=== PATIENT | male | born 1985 | race Caucasian/White ===

== ENCOUNTER → 2021-07-28 | Outpatient (CLI) | payer OTHER | LOC: EXRD 09:00 | DX: R14.0 Abdominal distension (gaseous) (principal); R18.8 Other ascites; R16.1 Splenomegaly, not elsewhere classified | CPT/HCPCS: 76700 ==

== ENCOUNTER → 2021-08-26 | Day surgery (SDC) | payer OTHER ==
[~2021-08-26] MED LIST: OXYCODONE HCL5 MG PO
== END | disposition home or self-care (01) ==
LOC: OR 06:20
DX: K42.9 Umbilical hernia without obstruction or gangrene (principal); I86.8 Varicose veins of other specified sites; K74.60 Unspecified cirrhosis of liver; I10 Essential (primary) hypertension; D64.9 Anemia, unspecified; R16.1 Splenomegaly, not elsewhere classified; Z88.5 Allergy status to narcotic agent; Z87.891 Personal history of nicotine dependence; Z20.822 Contact with and (suspected) exposure to COVID-19
CPT/HCPCS: C1781; J0690; J1100; J1170; J2001; J2250; J2405; J2704; J3010; J7030; J7120

== ENCOUNTER 2021-09-01 22:26 | Emergency (ER) | payer OTHER ==
[2021-09-01 23:35] LABS: HEMOGLOBIN 10.4 gm/dl (14.0-17.5); RED BLOOD COUNT 3.1 M/UL (4.20-5.50)
[2021-09-02 00:07] LABS: BUN/CREATININE RATIO 8 (0-10)
== END 2021-09-02 03:18 | disposition home or self-care (01) ==
LOC: ER1 22:26
PROVIDERS: Student in an Organized Health Care Education/Training Program
DX: R07.9 Chest pain, unspecified (principal); K76.9 Liver disease, unspecified
CPT/HCPCS: 71045; 80053; 80307; 82550; 82553; 83690; 83874; 84484; 85025; 85379; 85610; 93005; 99285; G0480; Q9967

== ENCOUNTER → 2021-09-10 | Day surgery (SDC) | payer OTHER | END | disposition home or self-care (01) | LOC: OR 07:03 | PROVIDERS: Internal Medicine Gastroenterology | PROC: 0DJ08ZZ Inspection of Upper Intestinal Tract, Via Natural or Artificial Opening Endoscopic (ICD-10-PCS; principal; 2021-09-10 11:40) | DX: K70.31 Alcoholic cirrhosis of liver with ascites (principal); K76.6 Portal hypertension; K31.89 Other diseases of stomach and duodenum; K21.00 Gastro-esophageal reflux disease with esophagitis, without bleeding; Z88.5 Allergy status to narcotic agent; Z20.822 Contact with and (suspected) exposure to COVID-19; Z79.891 Long term (current) use of opiate analgesic; Z98.890 Other specified postprocedural states | CPT/HCPCS: J2704 ==

== ENCOUNTER → 2021-11-10 | Outpatient (CLI) | payer OTHER ==
[2021-11-10 11:28] LABS: BUN/CREATININE RATIO 9 (0-10)
== END ==
LOC: LAB 10:06
PROVIDERS: Internal Medicine Gastroenterology
DX: R94.5 Abnormal results of liver function studies (principal)
CPT/HCPCS: 36415; 80053; 85610

== ENCOUNTER → 2022-03-05 | Outpatient (CLI) | payer OTHER | LOC: US 09:30 | DX: K70.30 Alcoholic cirrhosis of liver without ascites (principal); R79.89 Other specified abnormal findings of blood chemistry | CPT/HCPCS: 76700 ==